=== PATIENT | male | born 1940 | race Caucasian/White ===

== ENCOUNTER 2018-04-16 23:38 | Emergency (ER) | payer MEDICARE ==
[~2018-04-16] VITALS: Ht 190.5 cm; Wt 82.2 kg
--- NOTE | 2018-04-17 00:55 | NUR ---
pt to room walking with [place]
--- NOTE | 2018-04-17 01:07 | NUR ---
FIRST CONTACT WITH PT. C/O LEFT CP OFF/ON ALL DAY TODAY. WORSE WITH PALPATION. DENIES RADIAION OF PAIN. DENIES N/V/DIZZINESS. C/O HUTSON. EKG HAS BEEN COMPLETED AND PRESENTED TO [facility] ALREADY. PT. IS ON CONTINUOUS PULSE OX, B/P, AND HEART MONIOTRS. 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 PT. IS POOR HISTORIAN. CALL LIGHT IN REACH. DR. DOE AT BS TO EVAL PT. AND DISCUSS POC.
[2018-04-17] MEDS ORDERED: ASPIRIN 81 MG TABLET CHEW ONE (01:22)
[2018-04-17] MEDS ORDERED: SODIUM CHLORIDE FLUSH 10ML SYR IVF ONE (01:30)
[2018-04-17] MEDS ORDERED: ASPIRIN 81 MG TABLET CHEW PO ONE (01:30)
[2018-04-17 01:47] LABS: INTERNATIONAL NORMALIZED RATIO 1.05 (0.93-1.1); MEAN CORPUSCULAR HEMOGLOBIN 27.5 pg (27.5-34.5); MEAN CORPUSCULAR HGB CONC 32.7 g/dL (33.2-36.2); MEAN CORPUSCULAR VOLUME 84.1 fL (81-97); MEAN PLATELET VOLUME 8.5 fL (7.4-10.4); PLATELET COUNT 241 x10^3/uL (130-400); PROTHROMBIN TIME 11.1 Seconds (9.6-11.5); RED BLOOD COUNT 3.99 x10^6/uL (4.38-5.82); RED CELL DISTRIBUTION WIDTH 15.6 % (9.4-14.8)
[2018-04-17 01:49] LABS: ALBUMIN 3.3 g/dL (3.4-5.0); ANION GAP 6 mmol/L (5-15); CHLORIDE 109 mmol/L (98-107)
[2018-04-17 01:57] LABS: ALANINE AMINOTRANSFERASE 18 U/L (12-78); ALKALINE PHOSPHATASE 60 U/L (45-117); BILIRUBIN,TOTAL 0.4 mg/dL (0.2-1.0); TOTAL PROTEIN 7.2 g/dL (6.4-8.2); TROPONIN I < 0.015 ng/mL (0.000-0.045)
[2018-04-17 02:15] VITALS: BP 112/62
[2018-04-17 02:34] LABS: BASOPHILS # (AUTO) 0.04 x10^3/uL (0-0.1); BASOPHILS % (AUTO) 1 % (0-1); EOSINOPHILS # (AUTO) 0.26 x10^3/uL (0-0.4); EOSINOPHILS % (AUTO) 5 % (1-7); LYMPHOCYTES # (AUTO) 1.99 x10^3/uL (1-3.4); LYMPHOCYTES % (AUTO) 38 % (22-44); MD SCAN; MONOCYTES # (AUTO) 0.45 x10^3/uL (0.2-0.8); MONOCYTES % (AUTO) 9 % (2-9); NEUTROPHILS # (AUTO) 2.57 x10^3/uL (1.8-6.8); NEUTROPHILS % (AUTO) 48 % (42-75)
== END 2018-04-17 02:26 | disposition home or self-care (01) ==
LOC: ED 04-17 02:00
DX: R07.9 Chest pain, unspecified (principal); I10 Essential (primary) hypertension
CPT/HCPCS: 36415; 71045; 80053; 84484; 85025; 85610; 85730; 93005; 99284

== ENCOUNTER 2018-05-31 17:05 | Inpatient (IN) | payer MEDICARE ==
[~2018-05-31] VITALS: Ht 182.9 cm; Wt 77.9 kg
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
[2018-05-31] MEDS ORDERED: ASPIRIN 81 MG TABLET CHEW ONE (17:52)
[2018-05-31] MEDS ORDERED: ASPIRIN 81 MG TABLET CHEW PO ONE (18:00)
--- NOTE | 2018-05-31 18:00 | NUR ---
PT MEDICATED PER ORDER. LAB AND X RAY AT BEDSIDE.
[2018-05-31 18:16] LABS: ALANINE AMINOTRANSFERASE 23 U/L (12-78); ALBUMIN 3.3 g/dL (3.4-5.0); ANION GAP 7 mmol/L (5-15); CALCIUM 8.4 mg/dL (8.5-10.1); CHLORIDE 110 mmol/L (98-107); CREATININE 0.84 mg/dL (0.7-1.3)
[2018-05-31 18:19] LABS: ALKALINE PHOSPHATASE 67 U/L (45-117); BILIRUBIN,TOTAL 0.5 mg/dL (0.2-1.0); TOTAL PROTEIN 7.3 g/dL (6.4-8.2); TROPONIN I < 0.015 ng/mL (0.000-0.045)
[2018-05-31 18:37] LABS: BASOPHILS # (AUTO) 0.05 x10^3/uL (0-0.1); BASOPHILS % (AUTO) 1 % (0-1); EOSINOPHILS # (AUTO) 0.26 x10^3/uL (0-0.4); EOSINOPHILS % (AUTO) 4 % (1-7); LYMPHOCYTES # (AUTO) 2.14 x10^3/uL (1-3.4); LYMPHOCYTES % (AUTO) 35 % (22-44); MD SCAN; MEAN CORPUSCULAR HEMOGLOBIN 26.2 pg (27.5-34.5); MEAN CORPUSCULAR HGB CONC 32.9 g/dL (33.2-36.2); MEAN CORPUSCULAR VOLUME 79.5 fL (81-97); MEAN PLATELET VOLUME 8.4 fL (7.4-10.4); MONOCYTES # (AUTO) 0.42 x10^3/uL (0.2-0.8); MONOCYTES % (AUTO) 7 % (2-9); NEUTROPHILS # (AUTO) 3.27 x10^3/uL (1.8-6.8); NEUTROPHILS % (AUTO) 53 % (42-75); PLATELET COUNT 275 x10^3/uL (130-400); RED CELL DISTRIBUTION WIDTH 15.6 % (9.4-14.8)
--- NOTE | 2018-05-31 18:57 | NUR ---
REPORT GIVEN TO SUSHIL BYRD.
--- NOTE | 2018-05-31 19:00 | NUR ---
REPORT RECEIVED FROM KOLTON BYRD.
--- NOTE | 2018-05-31 19:14 | NUR ---
PT IS URINATING IN URINAL AT THIS TIME. PT'S AOX4. RESPS EVEN AND UNLABORED. ALL MONITORS IN PLACE. CALL LIGHT WITHIN REACH.
--- NOTE | 2018-05-31 19:55 | NUR ---
PT C/O LEFT EYE BURING PAIN/RIGHT SIDED HUTSON/LEFT SIDED CP AT THIS TIME. EDMD NOTIFIED. PT'S AOX4. RESPS EVEN AND UNLABORED.
[2018-05-31] MEDS ORDERED: ERYTHROMYCIN OPHTH 0.5%, 1GM LEFTEYE ONE (20:00)
--- NOTE | 2018-05-31 20:02 | NUR ---
ERYTHROMYCIN OPHTH 0.5% ORDERED FROM PHARMACY NOW.
--- NOTE | 2018-05-31 20:18 | NUR ---
PT MEDICATED PER EMAR. PT TOLERATED WELL. PT PROVIDED BLANKT AT THIS TIME WELL. EDMD AT BEDSIDE TO EXPLAIN ALL RESULTS.
[2018-05-31] MEDS ORDERED: CEFTRIAXONE PMX 1GM/50ML 50 ML IV ONE (21:30)
[2018-05-31] MEDS ORDERED: CEFTRIAXONE PMX 1GM/50ML 50 ML ONE (21:39)
--- NOTE | 2018-05-31 21:57 | NUR ---
PT MEDICATED PER EMAR. PT TOLERATED WELL. PT'S AOX4. RESPS EVEN AND UNLABORED.
--- NOTE | 2018-05-31 22:32 | NUR ---
PT PROVIDED URINAL FOR URINATE AT THIS TIME.
[2018-06-01] MEDS ORDERED: POLYETHYLENE GLYCOL 17 GM PACKET PO PRN
[2018-06-01] MEDS ORDERED: BISACODYL 10 MG SUPP PR PRN
[2018-06-01] MEDS ORDERED: ONDANSETRON ODT 4 MG PO PRN
[2018-06-01] MEDS: CEFTRIAXONE PMX 1GM/50ML 50 ML IV SCH
[2018-06-01] MEDS ORDERED: GUAIFENESIN/DM 200-20MG, 10ML UDC PO PRN
--- NOTE | 2018-06-01 00:06 | NUR ---
VIBRAMYCIN ORDERED FROM PHARMACY AT THIS TIME.
--- NOTE | 2018-06-01 00:45 | NUR ---
REPORT GIVEN TO MOLLY BYRD. ALL QUESTIONS ANSWERED.
--- NOTE | 2018-06-01 00:45 | NUR ---
PT MEDICATED PER EMAR. PT TOLERATED WELL. PT'S AOX4. RESPS EVEN AND UNLABORED.
[2018-06-01] MEDS ORDERED: OMNIPAQUE 350 MG/ML, 75ML BOTTLE ONE (01:02)
[2018-06-01 01:29] VITALS: BP 117/77
[2018-06-01 02:31] LABS: RAPID INFLUENZA A Negative (Negative); RAPID INFLUENZA B Negative (Negative)
[2018-06-01] MEDS: SODIUM CHLORIDE 0.9% 1,000 ML IV SCH ×3 (02:38→21:28)
[2018-06-01] MEDS: KETOROLAC 30 MG/1 ML IV PRN ×3 (05:15→21:28)
[2018-06-01] MEDS: ERYTHROMYCIN OPHTH 0.5%, 1GM EACHEYE SCH ×4 (05:15→21:28)
[2018-06-01 06:13] LABS: BASOPHILS # (AUTO) 0.05 x10^3/uL (0-0.1); BASOPHILS % (AUTO) 1 % (0-1); EOSINOPHILS # (AUTO) 0.27 x10^3/uL (0-0.4); EOSINOPHILS % (AUTO) 5 % (1-7); LYMPHOCYTES # (AUTO) 1.94 x10^3/uL (1-3.4); LYMPHOCYTES % (AUTO) 38 % (22-44); MD NO; MEAN CORPUSCULAR HEMOGLOBIN 26.4 pg (27.5-34.5); MEAN CORPUSCULAR HGB CONC 33.1 g/dL (33.2-36.2); MEAN CORPUSCULAR VOLUME 79.8 fL (81-97); MEAN PLATELET VOLUME 8.8 fL (7.4-10.4); MONOCYTES # (AUTO) 0.41 x10^3/uL (0.2-0.8); MONOCYTES % (AUTO) 8 % (2-9); NEUTROPHILS # (AUTO) 2.39 x10^3/uL (1.8-6.8); NEUTROPHILS % (AUTO) 47 % (42-75); PLATELET COUNT 252 x10^3/uL (130-400); RED BLOOD COUNT 4.51 x10^6/uL (4.38-5.82); RED CELL DISTRIBUTION WIDTH 15.3 % (9.4-14.8)
[2018-06-01 06:21] LABS: ALBUMIN 3.1 g/dL (3.4-5.0); ANION GAP 7 mmol/L (5-15); CALCIUM 8.3 mg/dL (8.5-10.1); CHLORIDE 111 mmol/L (98-107)
[2018-06-01 06:24] LABS: ALANINE AMINOTRANSFERASE 21 U/L (12-78); ALKALINE PHOSPHATASE 64 U/L (45-117); BILIRUBIN,TOTAL 0.5 mg/dL (0.2-1.0); CREATININE 0.82 mg/dL (0.7-1.3)
[2018-06-01 07:29] VITALS: BP 114/71
[2018-06-01] MEDS: SENNA/DOCUSATE TABLET PO SCH (08:38)
[2018-06-01] MEDS: DOXYCYCLINE 100 MG in DEXTROSE 5% 250 ML IV SCH ×2 (12:19)
[2018-06-01 13:56] VITALS: BP 133/79
[2018-06-01] MEDS: FERROUS SULFATE 325 MG TABLET PO SCH (17:33)
[2018-06-01 20:15] VITALS: BP 119/72
[2018-06-02] MEDS: CEFTRIAXONE PMX 1GM/50ML 50 ML IV SCH (00:03)
[2018-06-02] MEDS: DOXYCYCLINE 100 MG in DEXTROSE 5% 250 ML IV SCH ×2 (00:36→12:38)
[2018-06-02 01:52] VITALS: BP 132/82
[2018-06-02] MEDS: ERYTHROMYCIN OPHTH 0.5%, 1GM EACHEYE SCH ×4 (06:08→20:32)
[2018-06-02 08:09] VITALS: BP 120/75
[2018-06-02] MEDS ORDERED: CEFD300C37 PO (08:16)
[2018-06-02] MEDS ORDERED: DOXY100T PO (08:16)
[2018-06-02] MEDS ORDERED: ERYT1OIN5 EACHEYE (08:16)
[2018-06-02] MEDS: SENNA/DOCUSATE TABLET PO SCH (08:43)
[2018-06-02] MEDS: FERROUS SULFATE 325 MG TABLET PO SCH ×2 (08:43→16:39)
[2018-06-02] MEDS: SODIUM CHLORIDE 0.9% 1,000 ML IV SCH (08:43)
[2018-06-02 12:16] VITALS: BP 146/79
[2018-06-02] MEDS: ACETAMINOPHEN 325 MG TABLET PO PRN (12:40)
[2018-06-02 18:44] VITALS: BP 130/80
[2018-06-02] MEDS: CEFDINIR 300 MG CAPSULE PO SCH (20:32)
[2018-06-02] MEDS: DOXYCYCLINE 100MG TABLET PO SCH (20:32)
[2018-06-03 02:52] VITALS: BP 135/82
[2018-06-03] MEDS: ERYTHROMYCIN OPHTH 0.5%, 1GM EACHEYE SCH ×4 (06:07→20:35)
[2018-06-03 08:01] VITALS: BP 132/77
[2018-06-03] MEDS: ACETAMINOPHEN 325 MG TABLET PO PRN ×2 (08:06→20:35)
[2018-06-03] MEDS: DOXYCYCLINE 100MG TABLET PO SCH ×2 (09:44→20:35)
[2018-06-03] MEDS: SENNA/DOCUSATE TABLET PO SCH (09:44)
[2018-06-03] MEDS: CEFDINIR 300 MG CAPSULE PO SCH ×2 (09:44→20:35)
[2018-06-03] MEDS: FERROUS SULFATE 325 MG TABLET PO SCH ×2 (09:45→17:11)
[2018-06-03 15:44] VITALS: BP 122/75
[2018-06-03 20:28] VITALS: BP 118/66
[2018-06-04 02:49] VITALS: BP 126/77
[2018-06-04] MEDS: ERYTHROMYCIN OPHTH 0.5%, 1GM EACHEYE SCH ×4 (05:47→21:00)
[2018-06-04 07:27] VITALS: BP 125/77
[2018-06-04] MEDS: CEFDINIR 300 MG CAPSULE PO SCH ×2 (08:35→21:00)
[2018-06-04] MEDS: DOXYCYCLINE 100MG TABLET PO SCH ×2 (08:35→21:00)
[2018-06-04] MEDS: FERROUS SULFATE 325 MG TABLET PO SCH ×2 (08:36→16:34)
[2018-06-04] MEDS: SENNA/DOCUSATE TABLET PO SCH (08:37)
[2018-06-04 13:57] VITALS: BP 113/74
[2018-06-04 20:00] VITALS: BP 135/70
[2018-06-05 02:00] VITALS: BP 120/72
[2018-06-05] MEDS: ERYTHROMYCIN OPHTH 0.5%, 1GM EACHEYE SCH ×4 (05:40→20:23)
[2018-06-05 07:40] VITALS: BP 111/74
[2018-06-05] MEDS: DOXYCYCLINE 100MG TABLET PO SCH ×2 (07:45→20:22)
[2018-06-05] MEDS: CEFDINIR 300 MG CAPSULE PO SCH ×2 (07:45→20:22)
[2018-06-05] MEDS: FERROUS SULFATE 325 MG TABLET PO SCH ×2 (07:45→17:00)
[2018-06-05] MEDS: SENNA/DOCUSATE TABLET PO SCH (07:46)
[2018-06-05 12:07] VITALS: BP 122/75
[2018-06-05 19:14] VITALS: BP 120/71
[2018-06-05] MEDS: ACETAMINOPHEN 325 MG TABLET PO PRN (20:22)
[2018-06-06 03:15] VITALS: BP 96/61
[2018-06-06] MEDS: ERYTHROMYCIN OPHTH 0.5%, 1GM EACHEYE SCH (06:04)
[2018-06-06 07:19] VITALS: BP 124/74
[2018-06-06] MEDS: CEFDINIR 300 MG CAPSULE PO SCH (07:56)
[2018-06-06] MEDS: DOXYCYCLINE 100MG TABLET PO SCH (07:56)
[2018-06-06] MEDS: FERROUS SULFATE 325 MG TABLET PO SCH (07:56)
[2018-06-06] MEDS: SENNA/DOCUSATE TABLET PO SCH (07:56)
== END 2018-06-06 08:00 | disposition home or self-care (01) | DRG 194 ==
LOC: ED 21:58 → EDIP 22:00 → 3NE 06-01 01:16
PROVIDERS: ADMIT Family Medicine; ATTEND Family Medicine
DX: J18.1 Lobar pneumonia, unspecified organism (principal); E44.1 Mild protein-calorie malnutrition; H10.9 Unspecified conjunctivitis; D50.9 Iron deficiency anemia, unspecified; E11.9 Type 2 diabetes mellitus without complications; H05.20 Unspecified exophthalmos; H50.9 Unspecified strabismus; H53.2 Diplopia; I10 Essential (primary) hypertension; Z59.0 Homelessness; Z68.23 Body mass index [BMI] 23.0-23.9, adult
CPT/HCPCS: 36415; 70487; 71045; 80053; 82728; 83540; 83550; 83880; 84443; 84484; 85025; 87400; 93005; 96366; G0378; J0696; J1885; J7060; Q9967; J7030